=== PATIENT | male | born 2000 | race Caucasian/White ===

== ENCOUNTER → 2020-01-03 | Outpatient (CLI) | payer MEDICAID | END | disposition home or self-care (01) | LOC: CFH 14:15 | PROVIDERS: ATTEND Family Medicine | DX: S61.451A Open bite of right hand, initial encounter (principal); N20.0 Calculus of kidney; K38.1 Appendicular concretions; R31.9 Hematuria, unspecified; X58.XXXA Exposure to other specified factors, initial encounter; Y93.89 Activity, other specified; Y92.89 Other specified places as the place of occurrence of the external cause; Y99.8 Other external cause status | CPT/HCPCS: 74176 ==